=== PATIENT | female | born 1965 | race African-American/Black ===

== ENCOUNTER 2018-12-02 17:45 | Emergency (ER) | payer OTHER | END 2018-12-02 21:50 | disposition home or self-care (01) | LOC: JER 17:45 ==

== ENCOUNTER 2022-01-31 15:32 | Emergency (ER) | payer OTHER ==
[2022-01-31 15:42] VITALS: BP 122/73; PULSE 92; RESP 19; TEMP 98.1; BMI 21.4
[2022-01-31] MEDS ORDERED: BEBTELOVIMAB (EUA) 175 MG/2 ML VIAL IVPUSH ONE (16:22)
[2022-01-31] MEDS ORDERED: ONDANSETRON 4 MG/2 ML VIAL IVPUSH ONE (16:59)
[2022-01-31] MEDS ORDERED: ONDANSETRON 4 MG/2 ML VIAL ONE (17:02)
== END 2022-01-31 18:43 | disposition home or self-care (01) ==
LOC: JER 15:32
PROC: 3E03329 Introduction of Other Anti-infective into Peripheral Vein, Percutaneous Approach (ICD-10-PCS; principal; 2022-01-31)
PROC: 3E033GC Introduction of Other Therapeutic Substance into Peripheral Vein, Percutaneous Approach (ICD-10-PCS; 2022-01-31)
DX: U07.1 COVID-19 (principal)
CPT/HCPCS: 99284-25; M0222; Q0222

== ENCOUNTER 2022-06-05 16:22 | Emergency (ER) | payer OTHER ==
[2022-06-05 16:34] VITALS: BP 121/82; PULSE 100; RESP 18; TEMP 98; BMI 24.4
[2022-06-05] MEDS ORDERED: BACITRACIN 0.9 GM PACKET TP ONE (17:23)
[2022-06-05] MEDS ORDERED: BACITRACIN 15 GM TUBE TOPICAL OINTMENT ONE (17:29)
== END 2022-06-05 17:49 | disposition home or self-care (01) ==
LOC: JERFT 16:22 → JER 16:22 → JERFT 17:49
DX: T22.231A Burn of second degree of right upper arm, initial encounter (principal); X19.XXXA Contact with other heat and hot substances, initial encounter
CPT/HCPCS: 99282-25